=== PATIENT | male | born 1950 | race Caucasian/White ===

== ENCOUNTER 2017-03-16 22:53 | Emergency (ER) | payer OTHER, MEDICARE ==
[2017-03-16] MEDS ORDERED: ASPIRIN 81 MG TABLET, CHEWABLE PO ONE (22:54)
--- NOTE | 2017-03-16 23:36 | ER Document Report ---
ED General - General Chief Complaint: Chest Pain Stated Complaint: CHEST PAIN Time Seen by Provider: 03/16/17 23:35 Notes: Patient is 66-year-old male who presents with complaints of chest pain and back pain. This is been ongoing for 7-8 hours. Difficulty breathing when he gets up and walks around. He does have history of atrial fibrillation. He has previous history of ablation but still has had problems with A. fib even since his ablation. He is on Coumadin for his A. fib. He is also on metoprolol. He denies history of coronary disease. Denies history of stents. He is unsure if his had an actual cardiac cath. He says he has had a 3D picture looking at his heart. Unclear if this was a CT angiogram of his heart. He is followed by the [place] for his medical care. He has no other complaints at this time. He is he does smoke. He does not drink alcohol. He occasionally smokes marijuana. - Related Data Allergies/Adverse Reactions: No Known Allergies Allergy (Unverified 03/16/17 23:21) Past Medical History - Social History Smoking Status: Current Every Day Smoker Frequency of alcohol use: None Drug Abuse: Marijuana Family History: Reviewed & Not Pertinent Patient has suicidal ideation: No Patient has homicidal ideation: No Renal/ Medical History: Denies: Hx Peritoneal Dialysis Review of Systems - Review of Systems Notes: My Normal Review Basic REVIEW OF SYSTEMS: CONSTITUTIONAL : Denies fever, chills, or sweats. Denies recent illness. EENT: Denies eye, ear, throat, or mouth pain or symptoms. Denies nasal or sinus congestion. CARDIOVASCULAR: Has chest pain RESPIRATORY: Difficulty breathing that is more so with exertion. GASTROINTESTINAL: Denies abdominal pain. Denies nausea, vomiting, or diarrhea. Denies constipation. Last BM: MUSCULOSKELETAL: Denies neck or back pain or joint pain or swelling. SKIN: Denies rash or skin lesions. HEMATOLOGIC : On warfarin. NEUROLOGICAL: Denies altered mental status or loss of consciousness. Denies headache. Denies weakness or paralysis or loss of use of either side. Denies problems with gait or speech. Denies sensory or motor loss. ALL OTHER SYSTEMS REVIEWED AND NEGATIVE. Physical Exam - Vital signs Vitals: Temp Pulse Resp BP Pulse Ox 98.7 F 130 H 20 137/93 H 97 03/16/17 23:18 03/16/17 23:18 03/16/17 23:18 03/16/17 23:18 03/16/17 23:18 - Notes Notes: General Appearance: Well nourished, alert, cooperative, mild acute distress, mild obvious discomfort. Vitals: reviewed, See vital signs table. Head: no swelling or tenderness to the head Eyes: PERRL, EOMI, Conjuctiva clear Mouth: No decreasd moisture Lungs: No wheezing, No rales, No rhonci, No accessory muscle use, good air exchange bilaterally. Heart: rapid rate, irregular rythm, No murmur, no rub Abdomen: Normal BS, soft, No rigidity, No abdominal tenderness, No guarding, no rebound, no abdominal masses, no organomegaly Extremities: strength 5/5 in all extremities, good pulses in all extremities, no swelling or tenderness in the extremities, no edema. Skin: warm, dry, appropriate color, no rash Neuro: speech clear, oriented x 3, normal affect, responds appropriately to questions. Course - Re-evaluation Re-evalutation: 03/17/17 02:29 Patient still chest pain-free. His heart rate is now in the 60s and 70s. I talked him at length. I told him my recommendation would be to stay in the hospital to repeat his cardiac enzymes and to wean him off the Cardizem drip. Patient says he does not want stay in the hospital. Informed of the reason why he wants today is to make sure that there is no evidence of cardiac ischemia that led to his A. fib with RVR and his chest pain. I told his chest pain could be signs of impending heart attack which could be life-threatening. Patient understands this but still prefers not to stay in the hospital. I did talk him into at least staying for repeat troponin and to allow me to turn off his Cardizem drip and have him off Cardizem drip for prolonged period time to make sure his heart rate does not go back up. Patient is agreeable to this. I have stopped his Cardizem drip. We will repeat his troponin. I will then reassess him. 03/17/17 05:55 Patient's repeat troponin was negative. Patient has been off the Cardizem drip and his heart rate is in the 70s. He has been up and walking without difficulty. He denies any chest pain or shortness of breath at rest or with exertion. I again encouraged him to stay in the hospital the patient still says that he wants to leave and said he will follow-up with Dr. Wilson. I informed him to have a very low threshold to return to ER immediately if he has recurrent chest pain, any difficulty breathing, or feels his heart is racing any way. I informed him that the symptoms he has today could be signs of impending heart attack and is why we recommend him staying. Patient again shows understanding of this but still chooses to leave. Patient is alert and oriented 3 and has the ability to make decisions on his own and therefore has the right to make his own decision about his disposition. Dictation of this chart was performed using voice recognition software; therefore, there may be some unintended grammatical errors. - Vital Signs Vital signs: Temp Pulse Resp BP Pulse Ox 98.7 F 87 21 H 119/66 96 03/16/17 23:18 03/17/17 00:38 03/17/17 03:31 03/17/17 03:31 03/17/17 03:31 - Laboratory Result Diagrams: 03/17/17 00:04 03/17/17 00:04 Laboratory results interpreted by me: 03/17/17 03/17/17 03/17/17 00:04 00:04 00:04 WBC 19.2 H Seg Neuts % (Manual) 91 H Lymphocytes % (Manual) 4 L Abs Neuts (Manual) 17.5 H PT 25.0 H Carbon Dioxide 21 L Glucose 163 H - EKG Interpretation by Me Additional EKG results interpreted by me: 03/16/17 23:36 EKG is reviewed and interpreted by me. EKG shows A. fib with RVR with rate of [address] segment elevation or depression. No ischemic T-wave inversions. QRS duration QTc intervals are within normal range. No old EKG available for comparison. 03/16/17 23:37 Discharge - Discharge Clinical Impression: Chest pain Qualifiers: Chest pain type: unspecified Qualified Code(s): R07.9 - Chest pain, unspecified A-fib Qualifiers: Atrial fibrillation type: chronic Qualified Code(s): I48.2 - Chronic atrial fibrillation Condition: Stable Disposition: HOME, SELF-CARE Additional Instructions: Your blood work showed no evidence of damage to the heart at this time; however , as discussed with you this is not 100%. There is still possibility that you could be having some strain on heart or some mild damage that is not showing up in the blood work. This could be a sign of an impending heart attack. That is why I recommend that you stay in the hospital. We respect your decision to not stay; however, we strongly recommend you return to the ER anytime if you have any recurrent chest pain, any recurrent symptoms of your heart beating fast, any difficulty breathing, if you feel unwell in any way. Please call Dr. Romano for a close follow-up appointment. Please do not hesitate to return to the ER as we are happy to reevaluate you and take care of you. Referrals: RODRIGO ROMANO MD [EMERITUS] - 03/19/17
[2017-03-16] MEDS ORDERED: DILTIAZEM HCL/D5W 125 MG/125 ML RTUINJ IV PRN (23:43)
[2017-03-17 00:15] LABS: HEMATOCRIT 48.8 % (37.9-51.0); HEMOGLOBIN 16.7 g/dL (13.5-17.0); HGB HCT DIFFERENCE 1.3; MEAN CORPUSCULAR HEMOGLOBIN 33.2 pg (27.0-33.4); MEAN CORPUSCULAR HGB CONC 34.2 g/dL (32.0-36.0); MEAN CORPUSCULAR VOLUME 97 fl (80-97); RED BLOOD COUNT 5.04 10^6/uL (4.35-5.55); WHITE BLOOD COUNT 19.2 10^3/uL (4.0-10.5)
[2017-03-17 00:25] LABS: ALANINE AMINOTRANSFERASE 35 U/L (21-72); ALBUMIN 4.6 g/dL (3.5-5.0); ALKALINE PHOSPHATASE 64 U/L (38-126); ANION GAP 17 (5-19); ASPARTATE AMINO TRANSFERASE 22 U/L (17-59); BILIRUBIN,DIRECT 0.4 mg/dL (0.0-0.4); BILIRUBIN,TOTAL 1.2 mg/dL (0.2-1.3); BLOOD UREA NITROGEN 11 mg/dL (7-20); CALCIUM 9.6 mg/dL (8.4-10.2); CARBON DIOXIDE 21 mmol/L (22-30); CHLORIDE 101 mmol/L (98-107); CREATINE KINASE 91 U/L (55-170); CREATININE RESULT 0.74 mg/dL (0.52-1.25); GLUCOSE 163 mg/dL (75-110); POTASSIUM 4.3 mmol/L (3.6-5.0); SODIUM 139.2 mmol/L (137-145); TOTAL PROTEIN 7.2 g/dL (6.3-8.2)
--- NOTE | 2017-03-17 00:31 | RADIOLOGY REPORT (SQ) ---
EXAM DESCRIPTION: CHEST SINGLE VIEW COMPLETED DATE/TIME: 03/17/2017 12:10 am REASON FOR STUDY: cp COMPARISON: 05.29.09 EXAM PARAMETERS: NUMBER OF VIEWS: One view. TECHNIQUE: Single frontal radiographic view of the chest acquired. RADIATION DOSE: NA LIMITATIONS: None. FINDINGS: LUNGS AND PLEURA: No opacities, masses or pneumothorax. No pleural effusion. Prominent in terstitium, chronic. MEDIASTINUM AND HILAR STRUCTURES: No masses. Contour normal. HEART AND VASCULAR STRUCTURES: Heart normal in size. Normal vasculature. BONES: No acute findings. HARDWARE: None in the chest. OTHER: No other significant finding. IMPRESSION: NO ACUTE RADIOGRAPHIC FINDING IN THE CHEST. TECHNICAL DOCUMENTATION: JOB ID: [id number] [email or web address]- All Rights Reserved
[2017-03-17 00:34] LABS: BASOPHILS % (MANUAL) 0 % (0-2); EOSINOPHILS % (MANUAL) 0 % (0-6); LYMPHOCYTES % (MANUAL) 4 % (13-45); TOTAL CELLS COUNTED 100
[2017-03-17 00:36] LABS: ANISOCYTOSIS SLIGHT; BURR CELLS SLIGHT; POIKILOCYTOSIS 1+; STOMATOCYTES 1+
[2017-03-17 00:37] LABS: CREATINE KINASE MB 1.35 ng/mL (<4.55)
[2017-03-17 00:38] LABS: TROPONIN I < 0.012 ng/mL
[2017-03-17] MEDS ORDERED: NORMAL SALINE 500 ML IV ONE (00:43)
--- NOTE | 2017-03-17 01:29 | RADIOLOGY REPORT (SQ) ---
EXAM DESCRIPTION: CTA CHEST COMPLETED DATE/TIME: 03/17/2017 1:11 am REASON FOR STUDY: chest pain COMPARISON: None. TECHNIQUE: CT scan of the chest performed using helical scanning technique with dynamic intravenous contrast injection. Images reviewed with lung, soft tissue and bone windows. Reconstructed coronal and sagittal MPR images reviewed. Additional 3 dimensional post-processing performed to develop Maximal Intensity Projection images (CA P). All images stored on PACS. All CT scanners at this facility use dose modulation, iterative reconstruction, and/or weight based d osing when appropriate to reduce radiation dose to as low as reasonably achievable (ALARA). [facility]: Dose Right [facility]: CareDose [facility]: Dose Right [facility]: Teradose 4D [facility]: [employer] CONTRAST TYPE AND DOSE: contrast/concentration: Isovue 370.00 mg/ml; Total Contrast Delivered: 77.0 ml; Total Saline Delivered: 110.0 ml Contrast bolus optimized for the pulmonary arteries. Not diagnostic for the aorta. RENAL FUNCTION: Cr 0.7 RADIATION DOSE: Up-to-date CT equipment and radiation dose reduction techniques were employed. CTDIv ol: 19.8 - 27.0 mGy. DLP: 1064 mGy-cm. . LIMITATIONS: None. FINDINGS: LUNGS AND PLEURA: No masses, infiltrates, pneumothorax. No pleural effusions, calcificati ons. Small bilateral lower lobar atelectasis -scar. AORTA AND GREAT VESSELS: No aneurysm. Contrast bolus not optimized for the aorta. HEART: No pericardial effusion. No significant coronary artery calcifications. PULMONARY ARTERIES: No emboli visualized in the main pulmonary arteries or the segmental branches. HILAR AND MEDIASTINAL STRUCTURES: No identified masses or abnormal nodes. HARDWARE: None in the chest. UPPER ABDOMEN: Mild perinephric fat stranding. Limited exam. THYROID AND OTHER SOFT TISSUES: No masses. No adenopathy. BONES: No acute or significant finding. 3D MIPS: Confirm above findings. OTHER: No other significant finding. IMPRESSION: NORMAL CTA OF THE CHEST. NO PULMONARY EMBOLI. COMMENT: Quality ID # [id number]: Final reports with documentation of one or more dose reduction techniques (e.g., Automated exposure control, adjustment of the mA and/or kV according to patient size, use of iterative reconstruction technique) TECHNICAL DOCUMENTATION: JOB ID: [id number] [email or web address]- All Rights Reserved
[2017-03-17 03:46] VITALS: BP 119/66
--- NOTE | 2017-03-17 08:44 | EKG REPORT ---
SEVERITY:- ABNORMAL ECG - ATRIAL FIBRILLATION, V-RATE 98-165 BORDERLINE LEFT AXIS DEVIATION BORDERLINE R WAVE PROGRESSION, ANTERIOR LEADS : Confirmed by: Armand Casas MD 17-Mar-2017 08:43:39
== END 2017-03-17 03:55 | disposition home or self-care (01) ==
LOC: ER 22:53
DX: I48.2 Chronic atrial fibrillation (principal); M54.9 Dorsalgia, unspecified; R07.9 Chest pain, unspecified; Z79.01 Long term (current) use of anticoagulants; F17.200 Nicotine dependence, unspecified, uncomplicated
CPT/HCPCS: 93005; 99285; 96365; 96366; 36415; 82553; 82550; 85025; 85610; 80053; 84484; 71010; 71275; 93010; J7040; J3490

== ENCOUNTER 2017-04-24 10:13 | Day surgery (SDC) | payer MEDICARE, OTHER ==
[~2017-04-24 10:13] MED LIST: BUPIVACAINE HCL 0.75% INJ/PF (7.5 MG/1 ML) 10 ML SDV OD PRN; CHONDR SU A NA/HYALUR INTRAOC KIT (SURGICARE) ONE; FENTANYL CITRATE INJ/PF 100 MCG/2 ML AMPUL ONE; KETOROLAC TROMETHAMINE 0.45% 4 DROP/0.4 ML DROPERETTE OD PRN; LIDOCAINE 4% INJ/PF (40 MG/ML) 5 ML AMPUL OD PRN; MIDAZOLAM 2 MG/2 ML INJ ONE; PHENYLEPHRINE/KETOROLAC 1%-0.3% 4 ML VIAL ONE
[2017-04-24] MEDS: TROPICAMIDE 1% OPH SOLN 3 ML OD PRN ×3 (11:00→11:22)
[2017-04-24] MEDS: TETRACAINE HCL 0.5% OPH SOLN 0.6 ML DROPERETTE OD PRN ×2 (11:00→11:22)
[2017-04-24] MEDS: CYCLOPENTOLATE 0.2%/PHENYLEPHRINE 1% OPH SOLN 2 ML OD PRN ×3 (11:00→11:22)
[2017-04-24] MEDS: BESIFLOXACIN HCL 0.6% OPH SUSP 5 ML BOTTLE OD PRN ×4 (11:01→12:13)
[2017-04-24] MEDS ORDERED: ONDANSETRON HCL INJ/PF 4 MG/2 ML SDV ONE (11:20)
[2017-04-24] MEDS ORDERED: LIDOCAINE 1% INJ-PF (10 MG/ML) 30 ML SDV ONE (12:01)
--- NOTE | 2017-04-24 12:48 | [facility] OPERATIVE REPORT E ---
[facility] Operative Report NAME: LENI ORELLANA AGE: 66Y DATE OF SURGERY: 04/24/2017 ROOM: PREOPERATIVE DIAGNOSIS: Cataract, right eye. POSTOPERATIVE DIAGNOSIS: Cataract, right eye. PROCEDURE PERFORMED: Phacoemulsification with posterior chamber intraocular lens, right eye. SURGEON: SEAN SOLANO M.D. ANESTHESIA: Topical with MAC. INDICATIONS FOR SURGERY: Difficulty driving. Best corrected visual acuity 20/50. PROCEDURE: The patient was brought to the Operating Room and placed on the operative table. Following tetracaine drops, topical anesthesia was administered. This consisted of instrument wipe pledgets soaked in a solution of 4% Xylocaine mixed with 0.75% Marcaine in a 1:2 ratio. A 2 x 1 cm pledget was placed in the superior fornix. A 1 x 1 cm pledget was placed in the inferior fornix. The eye was patched shut for 5 minutes. The patch was removed. The eye was sterilely prepped and draped in the usual manner. Lid speculum was placed in the eye. The pledgets were removed. 4-0 black silk sutures were placed around the superior and the inferior rectus muscles to be used as traction. A conjunctival peritomy was made at the 10 o'clock position. Hemostasis was obtained with bipolar cautery. A posterior limbal groove was created using a crescent knife and dissected anteriorly towards the cornea. A sharp point blade was used to create a paracentesis site at the 2 o'clock position. A 2.4 mm keratome was used to enter the anterior chamber through the groove. Viscoelastic was injected into the anterior chamber. An anterior capsulotomy was performed using Utrata forceps in a capsulorrhexis fashion. Hydrodissection and hydrodelineation were performed. Phacoemulsification was performed in [id number]-kjd-nreqfsu technique. A total of 9.42 CDE phaco time was used. Following this, the I/A unit was used to remove residual cortex. Viscoelastic was injected into the capsular bag. Intraocular lens model [id number], 14.0 diopters, serial number [id number] was placed in the capsular bag. The I/A unit was used to remove residual viscoelastic. The wound was seen to be watertight under high and low pressure, and no sutures were placed. The intraocular lens was well centered. The pressure was adjusted in the eye to normal pressure. The 4-0 black silk sutures and lid speculum were removed. The eye was shielded after Besivance drops were placed. The patient tolerated the procedure well and was sent to the Recovery Room in good condition. DICTATING PHYSICIAN: SEAN SOLANO M.D. [id number] PHY#: [id number] ID: [id number] JOB#: [id number] ACCT: [id number] cc:SEAN SOLANO M.D. >
--- NOTE | 2017-04-24 12:48 | [facility] DISCHARGE SUMMARY E ---
[facility] Discharge Summary NAME: LENI ORELLANA AGE: 66Y ADMITTED: 04/24/2017 DISCHARGED: 04/24/2017 HOSPITAL COURSE: The patient is a 66-year-old gentleman who underwent uneventful cataract extraction with intraocular lens implant right eye on 04/24/2017. He will be discharged to home. He is instructed to resume preoperative medications, take Tylenol as needed for discomfort, to keep his eye shielded, to use Besivance, Durezol, and Ilevro at 3 p.m. and 8 p.m., and to follow up in my office in 1 day. DICTATING PHYSICIAN: SEAN SOLANO M.D. [id number] PHY#: [id number] ID: [id number] JOB#: [id number] ACCT: [id number] cc:SEAN SOLANO M.D. >
== END 2017-04-24 13:00 | disposition home or self-care (01) ==
LOC: SC 10:13
PROVIDERS: ATTEND Ophthalmology
PROC: 08RJ3JZ Replacement of Right Lens with Synthetic Substitute, Percutaneous Approach (ICD-10-PCS; principal; 2017-04-24 12:00)
DX: H25.813 Combined forms of age-related cataract, bilateral (principal); H57.03 Miosis; H01.002 Unspecified blepharitis right lower eyelid; H01.005 Unspecified blepharitis left lower eyelid; H43.813 Vitreous degeneration, bilateral; E78.00 Pure hypercholesterolemia, unspecified; F17.210 Nicotine dependence, cigarettes, uncomplicated; I48.91 Unspecified atrial fibrillation; Z79.01 Long term (current) use of anticoagulants; Z79.899 Other long term (current) drug therapy; I69.354 Hemiplegia and hemiparesis following cerebral infarction affecting left non-dominant side
CPT/HCPCS: 66984; V2632; J2250; J3490 ×4; A9270; J3010; J2405; C9447; 142

== ENCOUNTER 2017-05-29 09:44 | Day surgery (SDC) | payer MEDICARE ==
[~2017-05-29 09:44] MED LIST changes: -BUPIVACAINE HCL 0.75% INJ/PF (7.5 MG/1 ML) 10 ML SDV OD PRN; +BUPIVACAINE HCL 0.75% INJ/PF (7.5 MG/1 ML) 10 ML SDV OS PRN; -CHONDR SU A NA/HYALUR INTRAOC KIT (SURGICARE) ONE; -FENTANYL CITRATE INJ/PF 100 MCG/2 ML AMPUL ONE; -KETOROLAC TROMETHAMINE 0.45% 4 DROP/0.4 ML DROPERETTE OD PRN; +KETOROLAC TROMETHAMINE 0.45% 4 DROP/0.4 ML DROPERETTE OS PRN; -LIDOCAINE 4% INJ/PF (40 MG/ML) 5 ML AMPUL OD PRN; +LIDOCAINE 4% INJ/PF (40 MG/ML) 5 ML AMPUL OS PRN; -MIDAZOLAM 2 MG/2 ML INJ ONE; -PHENYLEPHRINE/KETOROLAC 1%-0.3% 4 ML VIAL ONE
[2017-05-29] MEDS ORDERED: LIDOCAINE 1% INJ-PF (10 MG/ML) 30 ML SDV ONE (10:05)
[2017-05-29] MEDS ORDERED: EPINEPHRINE INJ/PF 1 MG/1 ML AMPULE ONE (10:05)
[2017-05-29] MEDS ORDERED: CHONDR SU A NA/HYALUR INTRAOC KIT (SURGICARE) ONE (10:06)
[2017-05-29] MEDS: BESIFLOXACIN HCL 0.6% OPH SUSP 5 ML BOTTLE OS PRN ×4 (10:38→11:57)
[2017-05-29] MEDS: TROPICAMIDE 1% OPH SOLN 3 ML OS PRN ×3 (10:38→10:58)
[2017-05-29] MEDS: CYCLOPENTOLATE 0.2%/PHENYLEPHRINE 1% OPH SOLN 2 ML OS PRN ×3 (10:38→10:58)
[2017-05-29] MEDS: TETRACAINE HCL 0.5% OPH SOLN 0.6 ML DROPERETTE OS PRN ×2 (10:39→10:58)
[2017-05-29] MEDS ORDERED: MIDAZOLAM 2 MG/2 ML INJ ONE (11:01)
[2017-05-29] MEDS ORDERED: FENTANYL CITRATE INJ/PF 100 MCG/2 ML AMPUL ONE (11:01)
--- NOTE | 2017-05-29 12:14 | [facility] DISCHARGE SUMMARY E ---
[facility] Discharge Summary NAME: LENI ORELLANA AGE: 67Y ADMITTED: 05/29/2017 DISCHARGED: 05/29/2017 HOSPITAL COURSE: The patient is a 66-year-old gentleman who underwent uneventful complex cataract extraction with intraocular lens implant, left eye, on 05/29/17. He will be discharged to home. He is instructed to resume his preoperative medications, take Tylenol as needed for discomfort, keep his eye shielded, to use Besivance, ketorolac, and Pred Forte at 3 p.m. and 8 p.m. Follow up in my office in 1 day. DICTATING PHYSICIAN: SEAN SOLANO M.D. [id number] PHY#: [id number] ID: [id number] JOB#: [id number] ACCT: [id number] cc:SEAN SOLANO M.D. >
--- NOTE | 2017-05-29 12:14 | [facility] OPERATIVE REPORT E ---
[facility] Operative Report NAME: LENI ORELLANA AGE: 67Y DATE OF SURGERY: 05/29/2017 ROOM: PREOPERATIVE DIAGNOSIS: CATARACT, LEFT EYE. PUPIL MIOSIS. POSTOPERATIVE DIAGNOSIS: CATARACT, LEFT EYE. PUPIL MIOSIS. OPERATION: Complex cataract extraction with intraocular lens implant, left eye. SURGEON: SEAN SOLANO M.D. ANESTHESIA: Topical with MAC plus intraocular lidocaine. INDICATIONS FOR SURGERY: Difficulty with night driving. Best-corrected visual acuity 40/50. Indications for complex for pupil dilation requiring the use of Malyugin ring. PROCEDURE: The patient was brought to the operating room and placed on the operating table. Topical anesthesia was administered. This consisted of instrument wipe pledgets soaked in a solution of 4% Xylocaine mixed with 0.75% Marcaine in a 1:2 ratio. A 2 x 1 cm pledget was placed in the superior fornix. A 1 x 1 cm pledget was placed in the inferior fornix. The eye was patched shut for 5 minutes. The patch and pledgets were removed. The eye was sterilely prepped and draped in the usual manner. A lid speculum was placed in the eye. A 4-0 black silk suture was placed around the superior and inferior rectus muscles to use as traction. A conjunctival peritomy was made at the 10 o'clock position. Hemostasis was attained with bipolar cautery. A posterior limbal groove was created using a crescent knife and dissected anteriorly towards the cornea. A sharp point blade was used to create a paracentesis site at the 2 o'clock position. A 2.4 mm keratome was used to enter the anterior chamber through the groove. Then 0.5 mL of 1% nonpreserved lidocaine was injected into the anterior chamber. Viscoelastic was injected into the anterior chamber. Pupil dilation was approximately 4.5 mm. A Malyugin Ring was placed stabilizing the iris. An anterior capsulotomy was performed using Utrata forceps in a capsulorrhexis fashion. Hydrodissection and hydrodelineation were performed. Phacoemulsification was performed in a [id number] technique. A total of 5.27 CDE total phaco time was used. Following this, the I/A unit was used to remove residual cortex. Viscoelastic was injected into the capsular bag. Intraocular lens model SN60WF; 16.0 diopters, serial number [id number] was placed in the capsular bag. The Malyugin ring haptics were removed and the ring was removed from the eye. The I/A unit was used to remove residual viscoelastic. The wound was seen to be watertight under high and low pressure and no sutures were placed. The 4-0 black silk sutures and lid speculum were removed. The eye was shielded after Besivance drops were placed. The patient tolerated the procedure well and was sent to the recovery room in good condition. DICTATING PHYSICIAN: SEAN SOLANO M.D. DICTATING PHYSICIAN: SEAN SOLANO M.D. [id number] PHY#: [id number] ID: [id number] JOB#: [id number] ACCT: [id number] cc:ESAN SOLANO M.D. > MTDD
== END 2017-05-29 12:49 | disposition home or self-care (01) ==
LOC: SC 09:44
PROVIDERS: ATTEND Ophthalmology
PROC: 08RK3JZ Replacement of Left Lens with Synthetic Substitute, Percutaneous Approach (ICD-10-PCS; principal; 2017-05-29 11:30)
DX: H25.812 Combined forms of age-related cataract, left eye (principal); H57.03 Miosis; Z96.1 Presence of intraocular lens; I10 Essential (primary) hypertension; I48.91 Unspecified atrial fibrillation; Z79.899 Other long term (current) drug therapy; Z79.01 Long term (current) use of anticoagulants
CPT/HCPCS: 66982; V2632; J2250; J3490 ×4; A9270; J0171; J3010; 142